=== PATIENT | female | born 1945 | race Caucasian/White ===

== ENCOUNTER 2018-01-23 04:12 | Inpatient (IN) | payer MEDICARE ==
[2018-01-23 04:31] LABS: #Basophils 0.1 thou/uL (0.0-0.2); #Eosinphils 0.1 thou/uL (0.0-0.7); #Lymphocytes 4.8 thou/uL (1.20-3.40); #Monocytes 0.8 thou/uL (0.11-0.59); #Neutrophils 4.1 thou/uL (1.40-6.50); %Basophils 1.2 % (0.0-1.0); %Eosinophils 0.7 % (0.0-10.0); %Lymphocytes 48.5 % (21.0-51.0); %Monocytes 7.8 % (0.0-10.0); %Neutrophils 41.9 % (42.0-75.0); Hemoglobin 16.1 g/dL (12.0-16.0); Mean Corpuscular HGB CONC 34.8 g/dL (32.0-36.0); Mean Corpuscular Hemoglobin 33.6 pg (27.0-31.0); Mean Corpuscular Volume 96.5 fL (78.0-98.0); Mean Platelet Volume 5.7 fL (7.4-10.4); Platelet Count 417 thou/uL (130-400); RBC Distribution Width 10.9 % (11.5-14.5); Red Blood Cell (RBC) Count 4.79 mill/uL (4.20-5.40); White Blood Cell (WBC) Count 9.9 thou/uL (4.8-10.8)
[2018-01-23 04:57] LABS: ALT (SGPT) 16 U/L (8-55); AST (SGOT) 18 U/L (5-34); Albumin 4.3 g/dL (3.4-4.8); Alkaline Phosphatase 75 U/L (40-150); Anion Gap 12 mmol/L (10-20); BUN (Urea Nitrogen) 12 mg/dL (9.8-20.1); Bilirubin, Total 0.5 mg/dL (0.2-1.2); CK (CPK) 89 U/L (29-168); Calc. Creatinine Clearance 0 mL/min (70-130); Calcium 10.4 mg/dL (7.8-10.44); Carbon Dioxide 25 mmol/L (23-31); Chloride 104 mmol/L (98-107); Estimated GFR-MDRD 67; Globulin 2.5 g/dL (2.4-3.5); Glucose 114 mg/dL (80-115); Potassium 3.4 mmol/L (3.5-5.1); Protein, Total 6.8 g/dL (6.0-8.3); Sodium 138 mmol/L (136-145)
[2018-01-23 05:01] LABS: Troponin I Less than 0.010 ng/mL (< 0.028)
[2018-01-23 05:07] LABS: Bilirubin Negative (Negative); Blood, Urine Small (Negative); Clarity CLEAR (Clear); Glucose, Urine (Dipstick) Negative (Negative); Leukocyte Negative (Negative); Nitrite Negative (Negative); Protein, Urine (Dipstick) Negative (Neg-Trace); Specific Gravity, Urine 1.005 (1.002-1.036); Urobilinogen 0.2 mg/dL (0.2-1.0)
[2018-01-23 05:10] LABS: Bacteria/HPF None Seen HPF (None Seen); Hyaline Casts/LPF 0-3 HYALINE CAST LPF (0-3 Hyaline); Squamous Epithelial None Seen HPF (0-3); WBC/HPF 0-3 HPF (0-3)
[2018-01-23] MEDS ORDERED: Potassium Chloride 20 MEQ TAB ONE (05:29)
[2018-01-23] MEDS ORDERED: Ondansetron HCl/PF 4 MG/2 ML Vial IVP PRN ×2 (06:41→07:07)
[2018-01-23] MEDS ORDERED: Ondansetron ODT 4 MG TAB PO PRN ×2 (06:41→07:07)
[2018-01-23] MEDS ORDERED: Acetaminophen 325 MG TAB PO PRN ×2 (06:41→07:07)
[2018-01-23] MEDS ORDERED: Senokot 8.6 MG TAB PO PRN (07:07)
[2018-01-23] MEDS ORDERED: Mag-Al 1200 mg/1200 mg/30 ML UDCUP PO PRN (07:07)
[2018-01-23] MEDS ORDERED: Artificial Tears 18 DROP/0.9 ML EA EYE PRN (07:07)
[2018-01-23] MEDS ORDERED: Sodium Chloride 0.65% Nasal 44 ML BOT EA NARE PRN (07:07)
[2018-01-23] MEDS ORDERED: Milk Of Magnesia 30 ML UDCUP PO PRN (07:07)
[2018-01-23] MEDS ORDERED: Loperamide HCl 2 MG CAP PO PRN (07:07)
[2018-01-23] MEDS ORDERED: Diabetic Tussin 200 MG/10 ML UDCUP PO PRN (07:07)
[2018-01-23] MEDS ORDERED: Nitroglycerin 0.4 MG TAB (25 Tab Bottle) SL PRN (07:07)
[2018-01-23] MEDS ORDERED: Eucerin (Mineral Oil/Petrolatum,White) 30 gm Jar TOP PRN (07:07)
[2018-01-23] MEDS ORDERED: Chloraseptic Spray 180 ml Bottle PO PRN (07:07)
[2018-01-23] MEDS ORDERED: hydrALAZINE 20 MG/ML VIAL SLOW IVP PRN (07:07)
[2018-01-23] MEDS ORDERED: Loratadine 10 MG TAB PO PRN (07:07)
[2018-01-23] MEDS ORDERED: Zolpidem Tartrate 5 MG TAB PO PRN (07:07)
[2018-01-23] MEDS ORDERED: HYDROcodone/Acetaminophen 5/325 mg Tablet PO PRN (07:07)
--- NOTE | 2018-01-23 08:20 | RAD ---
PORTABLE CHEST ONE VIEW: 01/23/2018 4:31 a.m. HISTORY: Chest pain. FINDINGS: The heart size is normal. The aorta is tortuous. The lungs are well expanded without focal areas of consolidation, pneumothoraces, or pleural effusions. IMPRESSION: No acute process. POS: KIRA
[2018-01-23 08:21] VITALS: BMI 24.4
[2018-01-23 08:57] LABS: Troponin I 0.019 ng/mL (< 0.028)
[2018-01-23] MEDS ORDERED: Losartan 25 MG TAB PO SCH ×2 (09:00→11:45)
[2018-01-23] MEDS ORDERED: TICAGRELOR 90 MG TABLET PO SCH (09:00)
[2018-01-23] MEDS ORDERED: Benzonatate 100 MG CAP PO PRN (11:05)
[2018-01-23 11:36] LABS: Troponin I Less than 0.010 ng/mL (< 0.028)
[2018-01-23] MEDS ORDERED: Clopidogrel Bisulfate 75 MG TAB PO SCH (11:45)
[2018-01-23] MEDS ORDERED: Carvedilol 3.125 MG TAB PO SCH ×3 (11:45→21:00)
[2018-01-23] MEDS: Famotidine 20 MG TAB PO SCH ×2 (12:05→20:45)
--- NOTE | 2018-01-23 12:13 | HP ---
PRIMARY CARE PHYSICIAN: Dr. Bisi aL. PRIMARY MUD ENGINEER: Dr. Andrew. REASON FOR ADMISSION: Angina, new onset atrial fibrillation. HISTORY OF PRESENT ILLNESS: A 72-year-old female who has underlying history of coronary artery disea se with a stent, who presented to emergency room last night with complaint of chest pain. Patient re ports that she woke up from sleep around 2:00 a.m. with chest pain. She was feeling pressure sensati on and that was radiating to her jaw. She was feeling mild discomfort in her chest, but she was not having any palpitation, dizziness or syncope or shortness of breath. Patient's chest discomfort was so severe that she woke up her . She checked her pulse at home which was 120. Her blood pres sure was normal. Her symptoms were not going better and her pulse was not going down for half an meghan r and that is why they decided to go to the emergency room for evaluation. When she came to emergency room, she was found with atrial fibrillation with RVR. Patient was not gi tena any specific medication and subsequently she spontaneously converted to sinus rhythm. Patient de nies any taking excessive caffeinated product. She denies any alcohol abuse. She denies any melena or hematochezia. She denies any UTI symptoms. She denies any fever or chills. She denies any simil ar problem in the past. REVIEW OF SYSTEMS: The following complete review of systems was negative, unless otherwise mentioned in the HPI or below: Constitutional: Weight loss or gain, ability to conduct usual activities. Skin: Rash, itching. Eyes: Double vision, pain. ENT/Mouth: Nose bleeding, neck stiffness, pain, tenderness. Cardiovascular: Palpitations, dyspnea on exertion, orthopnea. Respiratory: Shortness of breath, wheezing, cough, hemoptysis, fever or night sweats. Gastrointestinal: Poor appetite, abdominal pain, heartburn, nausea, vomiting, constipation, or diarr hea. Genitourinary: Urgency, frequency, dysuria, nocturia. Musculoskeletal: Pain, swelling. Neurologic/Psychiatric: Anxiety, depression. Allergy/Immunologic: Skin rash, bleeding tendency. Please see my HPI for pertinent positive and negative. All other review of systems reviewed and nega tive except as mentioned in the HPI. PAST MEDICAL HISTORY: Hypertension, dyslipidemia, coronary artery disease with a stent. PAST SURGICAL HISTORY: Tubal ligation several years ago, appendicectomy, cardiac catheterization wit h stent placement. PAST PSYCHIATRIC HISTORY: Reviewed and negative. SOCIAL HISTORY: Patient smokes about half pack per day. She drinks alcohol socially. She denies an y other illicit drug abuse. ALLERGIES: CLINDAMYCIN and PENICILLIN. FAMILY HISTORY: No strong family history of premature coronary artery disease, stroke or cancer. CURRENT HOME MEDICATIONS: Tessalon 100 mg p.o. b.i.d. p.r.n., Coreg 1.5625 mg p.o. b.i.d., Plavix 75 mg p.o. daily, losartan 100 mg p.o. daily, aspirin 81 mg p.o. daily, Lipitor 40 mg p.o. at bedtime. EMERGENCY ROOM COURSE: Patient was given potassium chloride 40 mEq, aspirin 162 mg, IV fluid. PHYSICAL EXAMINATION: VITAL SIGNS: On arrival, blood pressure 107/82, pulse 109 irregular, but currently sinus rhythm and rate controlled, respiratory rate 20, temperature 97.7, saturation 96% on room air, weight 54 kilogr ams. GENERAL: The patient is currently alert, awake, no obvious acute distress. HEAD: Normocephalic, atraumatic. EYES: Pupils round, reactive to light. Extraocular muscle intact. ENT: Oropharynx within normal limits. Moist mucous membranes. No oral lesion, no pharyngeal erythe ma, no exudate. NECK: Supple, no JVD, no thyromegaly, no carotid bruit, no jugular venous distention. LUNGS: Clear to auscultation without any rhonchi or rales. CARDIAC: S1, S2, currently regular. No murmur, no gallop, no rub. ABDOMEN: Soft, bowel sounds present, nontender, nondistended. No organomegaly, no mass, no suprapub ic tenderness. BACK: Unremarkable, no CVA tenderness. EXTREMITIES: Upper extremity passive movements of all joints are normal. Lower extremities: No gage ma. Good distal pulsation, no calf tenderness. SKIN: No skin rash. HEMATOLOGICAL SYSTEM: No lymphadenopathy. PSYCHIATRIC: Normal affect. NEUROLOGIC: The patient is alert and oriented x3. Cranial nerves II-XII intact. Motor and sensatio n within normal limits. Reflexes symmetrical, no focal neurological deficit. IMAGING DATA AND SIGNIFICANT LABORATORY DATA: First EKG showed atrial fibrillation with rapid ventri cular response with heart rate 118 with occasional PVCs, left axis deviation. Repeat EKG showed norm al sinus rhythm and left axis deviation. Currently, telemetry monitoring showing normal sinus rhythm , sinus bradycardia. Chest x-ray based on my review, no acute cardiopulmonary process. CBC: WBC 9. 9, hemoglobin 16.1, platelet 417. BMP: Sodium 138, potassium 3.4, chloride 104, carbon dioxide 25, anion gap 12, BUN 12, creatinine 0.84, glucose 114, calcium 10.4, magnesium 1.9. LFT: AST 18, ALT 1 6, alkaline phosphatase 75, albumin 4.3. CK 89, CK-MB 2.0, troponin less than 0.010. BNP 24.1. TSH 2.03. Urinalysis normal. Chest x-ray based on my review, no acute cardiopulmonary process. ASSESSMENT AND PLAN/IMPRESSION: 1. Chest pain, most likely patient's chest pain related with new onset atrial fibrillation. The pat ient does have coronary artery disease with a history of stenting and her description is also consist ent with angina. Cardiology consulted and we will defer further plan to Cardiology. Already cardiac enzymes are negative and ruled out acute coronary syndrome. We will obtain echocardiography. [facility], we will continue with aspirin 81 mg p.o. daily, Plavix 75 mg p.o. daily and Lipitor 40 mg p.o. at bedtime. 2. New onset atrial fibrillation spontaneously converted to sinus rhythm. We will continue Coreg 1. 5625 mg p.o. b.i.d. Patient has hypertension. Her age in this regime is 2 points for CHADS2 score a nd she does not have any history of stroke. We will defer long-term anticoagulation to Cardiology. Currently, patient is on aspirin and Plavix. We will monitor 24 hours on telemetry floor and if she remains in sinus rhythm and does not get any repeat RVR, then we will consider discharging her home t omorrow. 3. Coronary artery disease with stent, currently stable with angina-like symptoms. Cardiology consu lted. The patient is on medical therapy with aspirin, Plavix, statin therapy and beta-moriah as wel l as losartan. Echocardiography will be obtained. 4. Dyslipidemia. Check lipid profile tomorrow morning and continue Lipitor 40 mg p.o. at bedtime. 5. Hypertension, currently well controlled and currently the patient has low blood pressure. If blo od pressure permits, then we will continue Coreg and losartan as per home dosage. 6. Deep venous thrombosis prophylaxis, long-term anticoagulation, will defer to Cardiology. 7. Gastrointestinal prophylaxis, Pepcid 20 mg p.o. b.i.d. 8. Code status: The patient is FULL CODE. Patient's is surrogate decision maker. Disposition plan based on clinical course. We are expecting patient's stay in hospital more than 2 m idnights. Plan of care discussed with the patient in detail.
[2018-01-23] MEDS: Apixaban 5 MG TAB PO SCH (20:45)
[2018-01-23] MEDS ORDERED: Atorvastatin Calcium 40 MG TAB PO SCH (21:00)
[2018-01-24 06:05] LABS: #Basophils 0.1 thou/uL (0.0-0.2); #Eosinphils 0.1 thou/uL (0.0-0.7); #Lymphocytes 3.8 thou/uL (1.20-3.40); #Monocytes 0.6 thou/uL (0.11-0.59); %Basophils 1.3 % (0.0-1.0); %Eosinophils 0.6 % (0.0-10.0); %Lymphocytes 44.9 % (21.0-51.0); %Monocytes 6.8 % (0.0-10.0); %Neutrophils 46.4 % (42.0-75.0); Anion Gap 12 mmol/L (10-20); BUN (Urea Nitrogen) 12 mg/dL (9.8-20.1); Calc. Creatinine Clearance 60 mL/min (70-130); Calcium 8.8 mg/dL (7.8-10.44); Carbon Dioxide 23 mmol/L (23-31); Cardiac Risk 2.4 (Less than 4.5); Chloride 110 mmol/L (98-107); Cholesterol 114 mg/dl (< 200 Desired); Estimated GFR-MDRD 75; Glucose 88 mg/dL (80-115); HDL Cholesterol 47 mg/dL (>60 Neg Risk); Hemoglobin 13.1 g/dL (12.0-16.0); LDL Cholesterol, Calculated 52 mg/dL; Mean Corpuscular HGB CONC 33.6 g/dL (32.0-36.0); Mean Corpuscular Hemoglobin 33.2 pg (27.0-31.0); Mean Platelet Volume 5.8 fL (7.4-10.4); Platelet Count 328 thou/uL (130-400); Potassium 3.9 mmol/L (3.5-5.1); RBC Distribution Width 10.8 % (11.5-14.5); Red Blood Cell (RBC) Count 3.95 mill/uL (4.20-5.40); Sodium 141 mmol/L (136-145); Triglycerides 74 mg/dL (Less than 150); White Blood Cell (WBC) Count 8.6 thou/uL (4.8-10.8)
[2018-01-24] MEDS: Apixaban 5 MG TAB PO SCH (08:27)
[2018-01-24] MEDS: Famotidine 20 MG TAB PO SCH (08:28)
[2018-01-24] MEDS ORDERED: Losartan 25 MG TAB PO SCH (09:00)
[2018-01-24] MEDS ORDERED: Non-Formulary Item 1 EACH (Losartan Potassium [Losartan Potassium] 100 MG) PO SCH (09:00)
[2018-01-24] MEDS ORDERED: Clopidogrel Bisulfate 75 MG TAB PO SCH ×2 (09:00)
--- NOTE | 2018-01-24 10:37 | PDOC.PN ---
- Subjective Encounter Start Date: 01/24/18 Encounter Start Time: 08:00 Patient seen and examined. No new complaints. No overnight events - Objective Resuscitation Status: Resuscitation Status FULL:Full Resuscitation MAR Reviewed: Yes Vital Signs & Weight: Vital Signs (12 hours) Temp Pulse Resp BP BP Pulse Ox 01/24/18 08:00 99.2 F 55 L 16 95 01/24/18 07:49 99.2 F 55 L 16 127/60 95 01/24/18 03:02 98.1 F 78 16 119/56 L 96 Weight Weight 120 lb 9.6 oz I&O: 01/23/18 01/24/18 01/25/18 06:59 06:59 06:59 Intake Total 50 Output Total 600 Balance -550 Result Diagrams: 01/24/18 05:18 01/24/18 05:18 EKG Reviewed by me: Yes (nsr) Phys Exam - Physical Examination Constitutional: NAD HEENT: PERRLA, moist MMs, sclera anicteric Neck: no JVD, supple Respiratory: no wheezing, no rales, no rhonchi Cardiovascular: RRR, no significant murmur, no rub Gastrointestinal: soft, non-tender, no distention, positive bowel sounds Musculoskeletal: no edema, pulses present Neurological: non-focal, normal sensation, moves all 4 limbs Lymphatic: no nodes Psychiatric: normal affect, A&O x 3 Skin: no rash, normal turgor Dx/Plan (1) Atrial fibrillation, transient Code(s): I48.91 - UNSPECIFIED ATRIAL FIBRILLATION Status: Acute (2) Chest pain Code(s): R07.9 - CHEST PAIN, UNSPECIFIED Status: Acute (3) CAD (coronary artery disease) Code(s): I25.10 - ATHSCL HEART DISEASE OF [place] CORONARY ARTERY W/O ANG PCTRS Status: Chronic (4) Dyslipidemia Code(s): E78.5 - HYPERLIPIDEMIA, UNSPECIFIED Status: Chronic (5) Hypertension Code(s): I10 - ESSENTIAL (PRIMARY) HYPERTENSION Status: Chronic (6) Tobacco abuse Code(s): Z72.0 - TOBACCO USE Status: Chronic - Plan cont current plan of care * medication reviewed as below * symptomatic treatment * cardiology following * overall stable * continue elliquis and Toprol XL * counselled to avoid smoking. Review of Systems - Review of Systems Eyes: negative: Pain, Vision Change, Conjunctivae Inflammation, Eyelid Inflammation, Redness, Other ENT: negative: Ear Pain, Ear Discharge, Nose Pain, Nose Discharge, Nose Congestion, Mouth Pain, Mouth Swelling, Throat Pain, Throat Swelling, Other Respiratory: negative: Cough, Dry, Shortness of Breath, Hemoptysis, SOB with Excertion, Pleuritic Pain, Sputum, Wheezing Cardiovascular: negative: chest pain, palpitations, orthopnea, paroxysmal nocturnal dyspnea, edema, light headedness, other Gastrointestinal: negative: Nausea, Vomiting, Abdominal Pain, Diarrhea, Constipation, Melena, Hematochezia, Other Genitourinary: negative: Dysuria, Frequency, Incontinence, Hematuria, Retention , Other Musculoskeletal: negative: Neck Pain, Shoulder Pain, Arm Pain, Back Pain, Hand Pain, Leg Pain, Foot Pain, Other Skin: negative: Rash, Lesions, Min, Bruising, Other - Medications/Allergies Allergies/Adverse Reactions: Allergies Allergy/AdvReac Type Severity Reaction Status Date / Time clindamycin [From Cleocin] Allergy Verified 09/08/16 21:47 Penicillins Allergy Verified 09/08/16 21:47 Medications: Current Medications Acetaminophen (Tylenol) 650 mg PO Q4H PRN PRN Reason: Headache/Fever or Pain Hydrocodone Bitart/Acetaminophen ([place] 5/325) 1 tab PO Q4H PRN PRN Reason: Moderate Pain (4-6) Al Hydroxide/Mg Hydroxide (Maalox) 30 ml PO Q6H PRN PRN Reason: Heartburn or Indigestion Apixaban (Eliquis) 5 mg PO BID [facility] Last Admin: 01/24/18 08:27 Dose: 5 mg Artificial Tears (Tears Naturale) 0 drop EA EYE PRN PRN PRN Reason: Dry Eyes Aspirin (Aspirin Chewable) 81 mg PO DAILY [facility] Last Admin: 01/24/18 08:28 Dose: 81 mg Atorvastatin Calcium (Lipitor) 40 mg PO HS [facility] Last Admin: 01/23/18 20:45 Dose: 40 mg Benzonatate (Tessalon) 100 mg PO BID PRN PRN Reason: Cough Famotidine (Pepcid) 20 mg PO BID [facility] Last Admin: 01/24/18 08:28 Dose: 20 mg Guaifenesin (Robitussin Sf) 200 mg PO Q4H PRN PRN Reason: Cough Hydralazine HCl (Apresoline) 10 mg SLOW IVP Q4H PRN PRN Reason: Systolic BP > 180 Loperamide HCl (Imodium) 2 mg PO PRN PRN PRN Reason: Diarrhea/Loose Stools Loratadine (Claritin) 10 mg PO DAILYPRN PRN PRN Reason: Sinus Symptoms Losartan Potassium (Cozaar) 100 mg PO DAILY [facility] Last Admin: 01/24/18 08:27 Dose: 100 mg Magnesium Hydroxide (Milk Of Magnesium) 30 ml PO DAILYPRN PRN PRN Reason: Constipation Metoprolol Succinate (Toprol Xl) 25 mg PO 1200 [facility] Last Admin: 01/23/18 13:44 Dose: 25 mg Mineral Oil/White Petrolatum (Eucerin Cream) 0 gm TOP BIDPRN PRN PRN Reason: Dry Skin Nitroglycerin (Nitrostat) 0.4 mg SL Q5MIN PRN PRN Reason: Chest Pain Ondansetron HCl (Zofran Odt) 4 mg PO Q6H PRN PRN Reason: Nausea/Vomiting Ondansetron HCl (Zofran) 4 mg IVP Q6H PRN PRN Reason: Nausea/Vomiting Phenol (Chloraseptic [place] 180 Ml Bot) 0 ml PO PRN PRN PRN Reason: Sore Throat Senna (Senokot) 2 tab PO HSPRN PRN PRN Reason: Constipation Sodium Chloride ([place] Nasal [place] 0.65%) 0 ml EA NARE QIDPRN PRN PRN Reason: Nasal Congestion Sodium Chloride (Flush - Normal Saline) 10 ml IVF Q12HR [facility] Last Admin: 01/24/18 08:28 Dose: 10 ml Sodium Chloride (Flush - Normal Saline) 10 ml IVF PRN PRN PRN Reason: Saline Flush Zolpidem Tartrate (Ambien) 5 mg PO HSPRN PRN PRN Reason: Insomnia
--- NOTE | 2018-01-24 11:02 | CON ---
DATE OF CONSULTATION: 01/24/2018 HISTORY OF PRESENT ILLNESS: The patient is a 72-year-old woman who presents for evaluation of palpit ations and chest discomfort. The patient has a previous history of coronary artery disease. In 08/12 017 , she suffered a myocardial infarction and she underwent emergent cardiac catheterization. She w as found to have a 70% LAD lesion, a 30% OM lesion and 100% RCA lesion. The patient underwent PTCA a nd stent placement into the right coronary artery. The patient has subsequently done well. She unde rwent a recent PET scan, which revealed her to have no evidence of ischemia. The patient woke up at 2:00 a.m. this morning with chest discomfort radiating to her jaw. She also noted having palpitation s. The patient came to the emergency room and her symptoms abruptly resolved. The patient denies eng ving any present chest discomfort. PAST MEDICAL HISTORY: Significant for, 1. Coronary artery disease. 2. Hypertension. 3. History of myocardial infarction. 4. Dyslipidemia. PAST SURGICAL HISTORY: SOCIAL HISTORY: The patient has a long history of tobacco abuse. ALLERGIES: She is allergic to CLINDAMYCIN and PENICILLIN. MEDICATIONS ON ADMISSION: Include losartan 100 daily, aspirin 81 daily, Plavix 75 daily, Coreg 1.56 b.i.d. and Lipitor 40 at bedtime. FAMILY HISTORY: There is a positive family history of coronary artery disease. REVIEW OF SYSTEMS: Ten-point system otherwise unremarkable. PHYSICAL EXAMINATION: GENERAL: This is a well-developed woman, in no acute distress. VITAL SIGNS: Blood pressure 131/60. NECK: Showed no jugular venous distention, no carotid bruits. LUNGS: Show decreased breath sounds bilateral. HEART: Regular rate and rhythm, normal S1, S2, no murmurs. ABDOMEN: Nondistended. EXTREMITIES: Showed trace edema. LABORATORY RESULTS: Revealed her to have a sodium 138, potassium 3.4, chloride 104, bicarbonate 25, BUN 12, creatinine 0.84, glucose is 114. Troponin 0.019. White blood cell count is 9.9, hemoglobin 16.1, hematocrit 46.2, platelets 417. IMAGING: EKG revealed atrial fibrillation with a nonspecific ST abnormality, Q-waves suggestive of p revious inferior myocardial infarction. Follow up EKG revealed normal sinus rhythm with Q-waves sugg estive of previous inferior NM. IMPRESSION: 1. New onset atrial fibrillation. 2. Coronary artery disease. 3. Status post PTCA and stent placed in right coronary artery. 4. History of inferior wall myocardial infarction. 5. Hypertension. 6. Dyslipidemia. 7. Tobacco abuse. This patient presents with new onset atrial fibrillation. She has a CHADS-VASc score of 3 (age great er than 65, female sex and history of myocardial infarction). We will start the patient on Eliquis. We will switch her to Toprol to hopefully prevent recurrences of atrial fibrillation. We will follo w this patient with you through her hospitalization Dr. Raleigh Batista.
[2018-01-24 11:54] VITALS: BP 129/63; TEMP 98
--- NOTE | 2018-01-24 15:02 | DIS ---
DATE OF ADMISSION: 01/23/2018 DATE OF DISCHARGE: 01/24/2018 PRIMARY CARE PHYSICIAN: Biis La M.D. DISCHARGE DISPOSITION: Home. PRIMARY DISCHARGE DIAGNOSES: Chest pain, ruled out acute coronary syndrome, transient atrial fibrill ation. SECONDARY DISCHARGE DIAGNOSES: Coronary artery disease, dyslipidemia, hypertension, tobacco abuse di sorder. PRIMARY PROCEDURE/OPERATION: None. RADIOLOGICAL INVESTIGATION: Chest x-ray normal. SIGNIFICANT LABORATORY DATA: WBC 8.6, hemoglobin 13.1, platelets 328. Sodium 141, potassium 3.9, BU N 12, creatinine 0.76. Cardiac enzymes negative. BNP 24.1, LDL 52. TSH 2.03. Urinalysis normal. DISCHARGE MEDICATIONS: Tessalon 100 mg p.o. b.i.d. p.r.n., losartan 100 mg p.o. daily, Eliquis 5 mg p.o. b.i.d., aspirin 81 mg p.o. daily, Lipitor 40 mg p.o. at bedtime, Pepcid 20 mg p.o. b.i.d., Topro l-XL 25 mg p.o. daily. CONTRAINDICATIONS: None. CODE STATUS: FULL CODE. INPATIENT CONSULTANTS: Dr. Andrew and Dr. Guzmán. TEST RESULTS PENDING ON DISCHARGE: None. ALLERGIES: CLINDAMYCIN, PENICILLIN. DISCHARGE PLAN: Post hospital, the patient will follow up with primary care physician, Dr. Andrew, a s instructed. HOSPITAL COURSE: A 72-year-old female, who was admitted to the hospital with a complaint of chest pa in and chest pressure. On admission, she had atrial fibrillation, which was spontaneously converted to normal sinus rhythm. Cardiology was consulted and they did a medication change with Toprol-XL and Eliquis was initiated. The patient's cardiac enzyme remained normal. She remained in sinus rhythm. She was asymptomatic. Cardiology cleared her for discharge. The patient is seen and examined at [facility] today. Please see my progress note from today for further details.
== END 2018-01-24 15:03 | disposition home or self-care (01) | DRG 310 ==
LOC: ERS 04:12 → 2NO 06:38
PROVIDERS: ADMIT Internal Medicine; ATTEND Internal Medicine
DX: I48.91 Unspecified atrial fibrillation (principal); I25.10 Atherosclerotic heart disease of native coronary artery without angina pectoris; E78.5 Hyperlipidemia, unspecified; I10 Essential (primary) hypertension; F17.210 Nicotine dependence, cigarettes, uncomplicated; I25.2 Old myocardial infarction; Z79.02 Long term (current) use of antithrombotics/antiplatelets; Z79.82 Long term (current) use of aspirin; Z95.5 Presence of coronary angioplasty implant and graft
CPT/HCPCS: 36415; 71045; 80048; 80053; 80061; 81003; 81015; 82550; 82553; 83735; 83880; 84443; 84484; 85025; 93005; A4216; J3490